=== PATIENT | male | born 1980 | race Caucasian/White ===

== ENCOUNTER 2018-01-29 02:47 | Emergency (ER) | payer MEDICAID ==
[~2018-01-29] VITALS: Ht 180.3 cm; Wt 117.9 kg
[2018-01-29 02:56] VITALS: BP 126/92
== END 2018-01-29 04:30 | disposition left against medical advice (07) ==
LOC: ER 02:50
DX: S51.812A Laceration without foreign body of left forearm, initial encounter (principal); Z53.21 Procedure and treatment not carried out due to patient leaving prior to being seen by health care provider; W54.0XXA Bitten by dog, initial encounter; Y93.89 Activity, other specified; Y99.8 Other external cause status; Y92.89 Other specified places as the place of occurrence of the external cause